=== PATIENT | male | born 1995 | race Two or more races ===

== ENCOUNTER 2025-08-21 16:09 | Emergency (ER) | payer MEDICAID, SELFPAY ==
[2025-08-21 16:29] VITALS: BP 117/74; PULSE 67; RESP 18; TEMP 36.9; O2SAT 97; BMI 27.6
--- NOTE | 2025-08-21 16:29 | XR_ITS ---
Examination: Foot, right, 3 views Technique: AP, oblique, lateral views foot, 3 views Date and time of exam: August 21, 2025, 1633 hours INDICATIONS: Patient fell 2 days ago with injury of the foot, redness swelling and pain involving the foot. FINDINGS: No acute fracture. No dislocation Soft tissue swelling dorsum of the foot IMPRESSION: Soft tissue swelling dorsum of the foot No acute fracture
--- NOTE | 2025-08-21 16:29 | XR_ITS ---
EXAMINATION: Right ankle 2 views TECHNIQUE: AP lateral right ankle 2 views Date and time: August 21, 2025 1633 hours INDICATIONS: Patient fell 2 days ago with injury to the ankle, ankle pain. FINDINGS: Prominent lateral malleolar soft tissue swelling On the AP view suspicious for minute 2 mm avulsion fracture off the fibular tip No ankle dislocation IMPRESSION: Suspicious for a minute avulsion fracture off the fibular tip
--- NOTE | 2025-08-21 17:55 | EDNOTE_ITS ---
Lower Extremity Injury RME/HPI General Chief Complaint: Ankle/Foot Injury Stated Complaint: INJURY R) FOOT Time Seen by Provider: 08/21/25 16:15 Arrival date/time: 08/21/25 16:09 This is a case of 29-year-old male with no medical history came into the emergency room due to right ankle and right foot pain status post twisting incident while playing soccer no other injury Limitations: no limitations Related Data Previous Rx's ?Medication ?Instructions ?Recorded hydrocodone 5 mg-acetaminophen 325 1 tab PO Q6H PRN pa in #16 tabs 08/21/25 mg tablet Allergies Allergy/AdvReac Type Severity Reaction Status Date / Time aspirin Allergy Severe BLOODY NOSE Verified 08/21/25 16:14 Review of Systems Constitutional Constitutional: Reports system reviewed and no additional complaints, except as documented and Reports as per HPI Cardiovascular Cardiovascular: Reports system reviewed and no additional complaints, except as documented and Reports as per HPI Respiratory Respiratory: Reports system reviewed and no additional complaints, except as documented and Reports as per HPI Gastrointestinal Gastrointestinal: Reports system reviewed and no additional complaints, except as documented and Reports as per HPI Musculoskeletal Musculoskeletal: Reports system reviewed and no additional complaints, except as documented and Reports as per HPI Neurologic Neurologic: Reports system reviewed and no additional complaints, except as documented and Reports as per HPI Past Medical History Social History SMOKING STATUS: Never smoker ED Exam General Limitations: Present no limitations General appearance: Present alert, in no apparent distress and other (Patient is awake alert oriented not in distress nontoxic looking well-hydrated with) Head Head exam: Present atraumatic Eye Eye exam: Present normal appearance, PERRL and EOMI ENT ENT exam: Present normal exam, normal oropharynx and mucous membranes moist Neck Neck exam: Present normal inspection, full ROM and trachea midline Chest Chest inspection: Present normal inspection and symmetric chest wall rise Respiratory Respiratory exam: Present normal lung sounds bilaterally; Absent respiratory distress, wheezes, stridor, accessory muscle use or prolonged expiratory phase Cardiovascular Cardiovascular exam: Present regular rate, normal rhythm and normal heart sounds; Absent bradycardia, tachycardia, irregular rhythm, systolic murmur, diastolic murmur or clicks Abdominal Exam Abdominal exam: Present soft and normal bowel sounds Extremities Exam Extremities exam: Present normal inspection and full ROM Expanded Lower Extremity Exam Lower leg exam: Present Achilles tendon intact; Absent Homans' sign Ankle exam: Present tenderness, swelling and other (Noted moderate tenderness on the lateral aspect of the right ankle with mild swelling no cellulitis no crepitation no deformity ROM limited pulses were full and equal capillary refill less than 2 seconds sensory); Absent abrasion, laceration, ecchymosis, deformity, crepitus, dislocation, erythema, tenderness over talofibular lig or anterior draw sign Foot/toe exam: Present tenderness, swelling and other (ROM limited to); Absent abrasion, laceration, ecchymosis, deformity, crepitus, dislocation, erythema, amputation, puncture wound, foreign body, calcaneal tenderness, tenderness at base of 5th metatarsal, nail avulsion or subungual hematoma Back Exam Back exam: Present normal inspection and full ROM Neurological Exam Neurological exam: Present alert, oriented X3, CN II-XII intact, reflexes normal and other (Gait was not examined due to pain on the right); Absent motor sensory deficit Psychiatric Psychiatric exam: Present normal affect and normal mood Skin Skin exam: Present warm, dry, intact and normal color Course Quality Measures none Orders Category Date Time Status Splint / Immobilizer STAT Care 08/21/25 17:47 Active XR ankle RT 2V Stat Exams 08/21/25 16:29 Completed XR foot comp RT min 3V Stat Exams 08/21/25 16:29 Completed HYDROcodone*/APAP 5/325 [[place] 5/325] Med 08/21/25 17:47 Discontinued 1 tab PO X1 ONE Vital Signs Vital signs: Vital Signs Temperature 98.5 F 08/21/25 16:29 Pulse Rate 67 08/21/25 16:29 Respiratory Rate 18 08/21/25 16:29 Blood Pressure 117/74 08/21/25 16:29 Pulse Oximetry (%) 97 08/21/25 16:29 Oxygen Delivery Method Room Air 08/21/25 16:29 Your oxygen saturation is 97% room air Extremity Injury, Lower MDM Narrative MDM Narrative:: This is a case of 29-year-old male with no medical history came into the emergency room due to right ankle and right foot pain status post twisting incident while playing soccer no other injury physical examination patient is awake alert oriented not in distress nontoxic looking well-hydrated well- nourished noted moderate tenderness on the right ankle and right dorsal foot with swelling no crepitation no deformity no cellulitis ROM is limited pulses were full and equal capillary refill less than 2 seconds pulses is normal sensory is normal Achilles tendon is normal the rest of the physical examination neurological exam is normal and unremarkable x-ray of the foot is normal no fracture no dislocation x-ray of the right ankle showed a avulsion fracture of the distal fibula Short leg splint was applied patient tolerated well neurovascular intact crutches was given patient will follow-up with PCP in 2 days for reevaluation and to be referred to orthopedic surgeon for avulsion fracture of the distal fibula RICE treatment will continue by the patient at home [place] was given for any worsening symptoms or any emergent concern return precaution in the ER was advised Patient was discharged with comfortable condition walking with stable gait. Patient verbalized no further complains explained diagnosis and answered patient question. Patient is comfortable with the proposed management plan including the need to follow up with his/her primary care physician and any specialist if applicable Discussed patient for any urgent condition or worsening sx, He/She needed to go to emergency room immediately or call 911. Patient acknowledge the responsibility to follow up as instructed and to monitor her/his symptoms. For any persistence of the symptoms for more than 3-5 days return precaution advised. Discussed the result of the test and was given printed discharge instruction Patient data External records reviewed:: [facility] previous records Clinical information provided by:: patient Social determinants that could affect healthcare access:: none Patient has the following chronic illnesses:: None How is presenting disease/condition affected by chronic disease/condition?: no chronic disease Evaluation data The following diagnostics were reviewed and interpreted by me:: radiology exam(s) Lab and/or radiology exams considered but not ordered:: Reviewed Interpretation Summary: reviewed Medications / Prescriptions Medications or Prescriptions considered but not ordered:: given Medication administrations:: Medication Administration History Discontinued Medications Hydrocodone Bitart/Acetaminophen (Hydrocodone/Apap 5/325 Tablet) 1 tab PO X1 ONE Stop: 08/21/25 17:48 given Consultations Consultation(s) initiated? (list below): No Diagnosis Extremity Injury, Lower Differential Diagnosis: ankle sprain and strain, fracture of toe and ankle fracture Most likely diagnosis given after review of the tests above:: avulsion fx distal fibula foot sprain Admission Indicated Admission indicated?: not indicated Explain why admission is indicated or not indicated:: not indicated Admission Request Was there a request for admission?: No Admission Attestation Admission request attestation: no indicated Disposition Plan Disposition Plan: Discharge Discharge Attestation Discharge Attestation: The patient and all family members were given an opportunity to ask questions and understood the discharge instructions. Discharge instructions specifically effects, indications for sooner follow up or return to the emergency department, and the expected course of current diagnosis. Patient condition: Stable Discharge Plan Plan Patient Disposition: HOME (Self Care) Patient condition on transfer: Stable Prescriptions/Referrals Prescriptions/Med Rec: New hydrocodone-acetaminophen 5-325 mg tablet 1 tab PO Q6H MDD max 4 tabs per day PRN (Reason: pain) Qty: 16 0RF Referrals: Ann Zacarias FNP [Primary Care Provider] - In 1 week Problem List Clinical Impression: Fracture of distal end of fibula, Foot sprain Patient/Caregiver Discharge Instructions Education Materials: ED Foot Sprain, ED Splint Care, Fiberglass, ED Ankle Fracture, Distal Fibula, ED RICE Additional Instructions: Follow-up with your primary care physician in 2 days for reevaluation and to be referred to orthopedic surgeon for further evaluation and treatment of avulsion fracture of the distal fibula right ankle worsening symptoms or any emergent concern call 911 or go to the nearest emergency room if symptoms persist or worsen you need to have MRI by your orthopedic surgeon to rule out ligament in jury ice pack every 2 hours for 20 minutes for 24 hours then alternate with warm compress no weightbearing on the right ankle keep the splint in place until cleared by your primary care physician use of crutches for ambulation take [place] as needed for pain Print Language: [place] Stand Alone Forms: Ebony Award Info., Patient Portal Info Letter TERRIE/MARIELOS Supervising Physician TERRIE/MARIELOS Supervising Physician: Dr [email or web address]
[2025-08-21] MEDS: HYDROcodone/APAP 5/325 TABLET 1 TAB PO (18:16)
== END 2025-08-21 18:45 | disposition home or self-care (01) ==
PROVIDERS: Emergency Provider Emergency Medicine; PCP Registered Nurse Community Health
DX: S82.401A Unspecified fracture of shaft of right fibula, initial encounter for closed fracture (principal); X50.1XXA Overexertion from prolonged static or awkward postures, initial encounter; Y93.66 Activity, soccer
CPT/HCPCS: 29515; 73600; 73630; 99283; A9270